=== PATIENT | female | born 1975 | race Two or more races ===

== ENCOUNTER 2018-05-26 13:25 | Emergency (ER) | payer SELFPAY ==
[~2018-05-26] VITALS: Ht 160 cm; Wt 68.0 kg
[2018-05-26] MEDS ORDERED: MORPHINE SULF INJ 2 MG/ML SYRINGE 1ML ONE ×2 (14:26)
[2018-05-26] MEDS ORDERED: ONDANSETRON HCL 4 MG/2 ML VIAL IV ONE (14:30)
[2018-05-26] MEDS ORDERED: MORPHINE SULFATE 4 MG/ML SYR/VIAL IV ONE (14:30)
[2018-05-26] MEDS ORDERED: ETOMIDATE (2MG/ML) 20ML VIAL IV ONE (15:45)
[2018-05-26] MEDS ORDERED: TETANUS-DIPTH-ACEL PERTUSSIS 0.5ML SYRG IM ONE (16:00)
[2018-05-26] MEDS ORDERED: PROMETHAZINE HCL 25 MG/ML 1ML IV ONE (16:15)
[2018-05-26] MEDS ORDERED: HYDROmorphone HCL 2 MG/ML VL IV ONE (16:15)
[2018-05-26 19:31] VITALS: BP 107/74
== END 2018-05-26 20:26 | disposition home or self-care (01) ==
LOC: EDBD 13:25 → ER 13:25
DX: S82.241A Displaced spiral fracture of shaft of right tibia, initial encounter for closed fracture (principal); S82.441A Displaced spiral fracture of shaft of right fibula, initial encounter for closed fracture; W01.0XXA Fall on same level from slipping, tripping and stumbling without subsequent striking against object, initial encounter; Y93.89 Activity, other specified; Y99.8 Other external cause status; Y92.89 Other specified places as the place of occurrence of the external cause
CPT/HCPCS: 27752; 73590; 90471; 90715; 96374; 96375; 99152; 99285; J1170; J2270; J2405; J2550